=== PATIENT | female | born 1990 | race Caucasian/White ===

== ENCOUNTER → 2018-04-05 | Outpatient (REF) | payer BC | LOC: M LAB REF 13:44 | DX: Z12.4 Encounter for screening for malignant neoplasm of cervix (principal) | CPT/HCPCS: G0123 ==

== ENCOUNTER → 2018-05-11 | Outpatient (CLI) | payer BC ==
[~2018-05-11] MED LIST: ACET50TA PO; ANUS2.5C2 PR; DOCU10ELUD PO; IBUP600T26 PO; IBUP60TA PO; IBUP80TA PO; MAPA500T2 PO; MOM30SS PO; PRENTAB9 PO; TUMS500C PO
[2018-05-11 14:09] LABS: BASO % 0.6 % (0.0-1.0); EOS # 0.1 10^3/uL (0.0-0.50); EOS % 0.8 % (0.0-3.0); HEMATOCRIT 39.9 % (36.0-47.0); HEMOGLOBIN 13.4 g/dl (12.0-15.5); LYMPH # 2.1 10^3/uL (1.5-6.5); LYMPH % 31.3 % (24.0-44.0); MEAN CORPUSCULAR HEMOGLOBIN 31.8 pg (27.0-33.0); MEAN CORPUSCULAR HGB CONC 33.6 g/dl (32.0-36.5); MEAN CORPUSCULAR VOLUME 94.8 fl (80.0-96.0); MONO # 0.4 10^3/uL (0.0-0.8); MONO % 6.7 % (0.0-5.0); NEUTROPHILS % 60.3 % (36.0-66.0); PLATELET COUNT, AUTOMATED 215 10^3/uL (150-450); RED BLOOD COUNT 4.21 10^6/uL (4.00-5.40); WHITE BLOOD COUNT 6.6 10^3/uL (4.0-10.0)
[2018-05-11 15:12] LABS: CHLAMYDIA DNA AMPLIFICATION NEGATIVE (NEGATIVE); GC DNA AMPLIFICATION NEGATIVE (NEGATIVE)
[2018-05-12 10:30] LABS: HEPATITIS C VIRUS ABY INDEX 0.1 INDEX (<0.8); HIV 1&2 SCREEN CENTAUR NEGATIVE (NEGATIVE); RUBELLA IgG QUALITATIVE IMMUNE (IMMUNE)
== END ==
LOC: M SMT 09:33
PROVIDERS: ATTEND Advanced Practice Midwife
DX: Z36.89 Encounter for other specified antenatal screening (principal); Z3A.12 12 weeks gestation of pregnancy

== ENCOUNTER → 2018-06-08 | Outpatient (REF) | payer BC | LOC: M LAB REF 17:32 | PROVIDERS: ATTEND Advanced Practice Midwife | DX: Z34.82 Encounter for supervision of other normal pregnancy, second trimester (principal) ==

== ENCOUNTER → 2018-06-21 | Outpatient (CLI) | payer BC, MEDICAID ==
--- NOTE | 2018-06-22 08:22 | REP ---
Clinical: Anatomical evaluation. Comparison: None . Findings: Examination demonstrates a single live intrauterine in breech presentation. motion is identified by technologist. Placenta is noted posterior and grade grade 1 without evidence for placenta previa or abruption. Amniotic fluid volume is normal. Cervix measures 4.6 cm in length and appears closed. No evidence for nuchal cord. Gestational age by LMP 18 weeks 2 days with CHRIS 11/20/2018 . Gestational age by current measurements 18 weeks 6 days with CHRIS 11/16/2018 . FHR equals 150 beats per minute. BPD 4.2 cm 18 weeks 5 days HC 14.7 cm 17 weeks 6 days AC 13.8 cm 19 weeks 2 days FL 2.9 cm 18 weeks 6 days HL 2.9 cm 19 weeks 3 days HC/AC ratio 1.07 Estimated weight 266 grams ( 72nd percentile). Anatomical assessment demonstrates normal structures including cranium, cavum, lungs, diaphragm, stomach, cord insertion/three-vessel cord, kidneys/bladder, spine, and lower extremities. 6 cm left choroid plexus cyst noted. Limited evaluation of the posterior fossa, facial features, heart/ventricular outflow tracts, and extremities. Impression: 1. Single live intrauterine in breech presentation demonstrating appropriate interval growth. 2. Abnormal findings and anatomical limitations as noted above warrant reevaluation and follow-up. Electronically Signed by Montez Pepper MD 06/22/2018 08:13 A
== END ==
LOC: M RAD 09:36
PROVIDERS: ATTEND Advanced Practice Midwife
DX: Z36.89 Encounter for other specified antenatal screening (principal); Z3A.18 18 weeks gestation of pregnancy

== ENCOUNTER → 2018-07-06 | Outpatient (REF) | payer BC, MEDICAID | LOC: M LAB REF 13:20 | PROVIDERS: ATTEND Advanced Practice Midwife | DX: Z34.82 Encounter for supervision of other normal pregnancy, second trimester (principal); Z3A.00 Weeks of gestation of pregnancy not specified ==

== ENCOUNTER → 2018-07-19 | Outpatient (CLI) | payer BC ==
--- NOTE | 2018-07-20 05:39 | REP ---
Clinical: Anatomical evaluation. Comparison: 06/21/2018 . Findings: Examination demonstrates a single live intrauterine in footling breech presentation. motion is identified by technologist. Placenta is noted posterior and grade grade 1 without evidence for placenta previa or abruption. Amniotic fluid volume is normal. Cervix measures 4.6 cm in length and appears closed. No evidence for nuchal cord. Gestational age by LMP 22 weeks 2 days with CHRIS 11/20/2018 . Gestational age by current measurements 21 weeks 2 day with CHRIS 11/27/2018 . FHR equals 150 beats per minute. Estimated weight 452 grams ( 30th percentile). Anatomical assessment demonstrates normal structures including cranium, choroid plexus, cavum, cerebellum/posterior fossa, facial features, lungs, four-chamber heart, diaphragm, stomach, cord insertion/three-vessel cord, kidneys/bladder, spine, and extremities. Impression: 1. Single live intrauterine in breech presentation demonstrating appropriate interval growth. 2. Previously noted choroid plexus cysts have resolved. 3. Limited evaluation of the cardiac ventricular outflow tracts. Remainder of the anatomical assessment is complete and normal. Electronically Signed by Montez Pepper MD 07/20/2018 05:30 A
== END ==
LOC: M SMT 08:42
PROVIDERS: ATTEND Advanced Practice Midwife
DX: O32.1XX1 Maternal care for breech presentation, fetus 1 (principal); Z3A.21 21 weeks gestation of pregnancy

== ENCOUNTER → 2018-08-05 | Outpatient (REF) | payer BC, MEDICAID ==
[~2018-08-05] MED LIST changes: -ACET50TA PO; -DOCU10ELUD PO; +DOCU5LIQ PO; +IBUP600T42 PO; -IBUP60TA PO; +MAPA500T17 PO
== END ==
LOC: M LAB REF 13:31
PROVIDERS: ATTEND Advanced Practice Midwife
DX: Z34.82 Encounter for supervision of other normal pregnancy, second trimester (principal); Z3A.00 Weeks of gestation of pregnancy not specified

== ENCOUNTER → 2018-09-02 | Outpatient (CLI) | payer BC, MEDICAID ==
[2018-09-02 13:48] LABS: HEMATOCRIT 37.2 % (36.0-47.0); HEMOGLOBIN 11.9 g/dl (12.0-15.5); PLATELET COUNT, AUTOMATED 160 10^3/uL (150-450); RED BLOOD COUNT 3.72 10^6/uL (4.00-5.40); WHITE BLOOD COUNT 8.5 10^3/uL (4.0-10.0)
== END ==
LOC: M SMT 08:05
PROVIDERS: ATTEND Advanced Practice Midwife
DX: Z34.82 Encounter for supervision of other normal pregnancy, second trimester (principal); Z3A.00 Weeks of gestation of pregnancy not specified

== ENCOUNTER → 2018-10-27 | Outpatient (CLI) | payer BC, MEDICAID | LOC: M SMT 08:25 | PROVIDERS: ATTEND Advanced Practice Midwife | DX: Z34.83 Encounter for supervision of other normal pregnancy, third trimester (principal); Z3A.00 Weeks of gestation of pregnancy not specified ==

== ENCOUNTER 2018-11-13 14:10 | Outpatient (CLI) | payer BC, MEDICAID ==
[~2018-11-13] VITALS: Ht 160 cm; Wt 104.3 kg
[2018-11-13 14:26] VITALS: BP 133/70
[2018-11-13 15:14] VITALS: BP 126/73
== END 2018-11-13 15:26 | disposition home or self-care (01) ==
LOC: M LDO 14:10
PROVIDERS: ATTEND Obstetrics & Gynecology
DX: O36.8130 Decreased fetal movements, third trimester, not applicable or unspecified (principal); Z3A.37 37 weeks gestation of pregnancy
CPT/HCPCS: 59025; G0378; G0463

== ENCOUNTER 2018-11-17 08:45 | Inpatient (IN) | payer BC, MEDICAID ==
[~2018-11-17] VITALS: Ht 160 cm; Wt 104.2 kg
[2018-11-17] VITALS (22 sets, daily range): BP systolic 99–133; BP diastolic 51–69
[2018-11-17] MEDS ORDERED: TUMS500C PO (09:14)
[2018-11-17 09:58] LABS: HEMATOCRIT 34.6 % (36.0-47.0); HEMOGLOBIN 11.3 g/dl (12.0-15.5); MEAN CORPUSCULAR HEMOGLOBIN 31.4 pg (27.0-33.0); MEAN CORPUSCULAR HGB CONC 32.7 g/dl (32.0-36.5); MEAN CORPUSCULAR VOLUME 96.1 fl (80.0-96.0); PLATELET COUNT, AUTOMATED 136 10^3/uL (150-450)
[2018-11-17] MEDS ORDERED: miSOPROStol 50 MCG 1/2 TAB (S0191) PO ONE (10:00)
--- NOTE | 2018-11-17 10:06 | HPE ---
DATE OF ADMISSION: 11/17/2018 Radha is a 28-year-old 3, para 2-0-0-2 at 39-4/7 weeks gestation with and estimated date of confinement (EDC) of 11/20/2018 based on first trimester ultrasound. She presents to labor and delivery today for induction of labor for term . care was initiated at [facility] in the first trimester. course has been uncomplicated. OBSTETRICAL HISTORY: June 2012: 40 weeks 6/7 days, 9 pounds 8 ounces male, vaginal delivery uncomplicated. March 2014: 39-1/7 weeks gestation, 8 pounds 6 ounces male, spontaneous vaginal delivery, uncomplicated. OBSTETRIC LABS: A+, antibody screen negative, rubella immune, VDRL nonreactive. Urine culture no growth. Hep B surface antigen negative. HIV negative. Hep C antibody nonreactive. Gonorrhea and chlamydia negative and rubella immune. She did decline genetic serum screening labs. Gestational diabetic screening normal at 74 and her GBS is negative. PAST MEDICAL HISTORY: Childhood varicella. SURGERIES: None. FAMILY HISTORY: Thyroid dysfunction, asthma. SOCIAL HISTORY: The patient is single, however the father of the baby is at bedside and supportive. She is a nonsmoker. Denies history of alcohol use. Denies history of any sexually transmitted infections and denies history of abuse physical, sexual and emotional. ALLERGIES: No known drug allergies. CURRENT MEDICATIONS: vitamins OBJECTIVE: Temperature 96, pulse 106, respirations 28, blood pressure is 132/64. She is alert and oriented times three, smiling and talkative. heart rate is 135 with moderate variability, positive accelerations, no decelerations. No pattern of regular contractions. Abdomen: Gravid, cephalic presentation, 8-1/2 pound estimated weight. Sterile vaginal exam 3-4 cm, 50% effaced, -2 station mid position. Normal bloody show. ASSESSMENT: Intrauterine at 39-4/7 weeks. heart rate category 1. PLAN: Admit the patient to labor and delivery. Routine labs. Out of bed ad jesús. Clear liquid diet. One dose of misoprostol 50 mcg by mouth for cervical ripening. Likely will start IV Pitocin. The patient does desire an epidural when she is uncomfortable. The plan is for epidural and following epidural, will be assisted rupture of membranes and expectations of a spontaneous vaginal delivery. I did review risks, benefits and alternatives to the patient. All of patient and her partner's questions have been answered and they do desire to proceed with induction. The patient has been verbally consented for emergency surgery and blood products if necessary.
[2018-11-17] MEDS: LR 1,000 ML IV SCH ×2 (14:44→17:16)
[2018-11-17] MEDS ORDERED: OXYTOCIN DRIP 30 UNITS in APPROPRIATE DILUENT 1 EA IV SCH ×2 (14:45→20:31)
[2018-11-17] MEDS ORDERED: LACTATED RINGER'S 1000 ML IV ONE (16:45)
[2018-11-17] MEDS ORDERED: FENTANYL 2MCG/ML ROPIVACAINE 0.2% IN 0.9% NACL 100ML IVBAG As Ordered ONE (16:59)
[2018-11-17] MEDS ORDERED: FENTANYL/ROPIVACAINE/NACL BAG 100 ML EPIDURAL SCH (18:30)
[2018-11-17] MEDS ORDERED: ONDANSETRON 4MG/2ML VIAL (J2405) IV PRN (18:30)
[2018-11-17] MEDS ORDERED: EPIDURAL COMMENT XX SCH (18:30)
[2018-11-17] MEDS ORDERED: ePHEDrine SULFATE 25 MG/5 ML(5MG/ML) SYRINGE IV PRN (18:30)
[2018-11-17] MEDS ORDERED: NALOXONE INJ 0.4 MG/1 ML VIAL (J2310) IV PRN (18:30)
[2018-11-17] MEDS ORDERED: EPIDURAL/PCA KEYS XX PRN (18:30)
[2018-11-17] MEDS ORDERED: diphenhydrAMINE INJ 50MG/ML VIAL (J1200) IV PRN (18:30)
[2018-11-17] MEDS ORDERED: REFRIGERATOR IV KEYS XX PRN (18:30)
[2018-11-17] MEDS ORDERED: DOCUSATE SODIUM 100 MG CAP PO PRN (20:45)
[2018-11-17] MEDS ORDERED: DIBUCAINE 1% OINTMENT 30GM TOP PRN (20:45)
[2018-11-17] MEDS ORDERED: IBUPROFEN 800 MG TAB PO PRN (20:45)
[2018-11-17] MEDS ORDERED: METHYLERGONOVINE MALEATE 0.2 MG TAB PO PRN (20:45)
[2018-11-17] MEDS ORDERED: RHOGAM 300 MCG (1500 IU) INJ (J2790) IM SCH (20:45)
[2018-11-17] MEDS ORDERED: ACETAMINOPHEN 500 MG TAB PO PRN (20:45)
[2018-11-17] MEDS ORDERED: MEASLES,MUMPS,RUBELLA VACCINE INJ (MMR-II) (90707) SC SCH (20:45)
[2018-11-17] MEDS ORDERED: IBUPROFEN 600 MG TAB PO PRN (20:45)
--- NOTE | 2018-11-17 21:12 | DN ---
DATE: 11/17/2018 Radha is a 28-year-old 3, para 3-0-0-3 now who was admitted to labor and delivery for induction of labor at term . Misoprostol IV Pitocin was utilized and labor did ensue. She used an epidural for her labor coping. She progressed to full dilation at 1999. She pushed to a normal spontaneous vaginal delivery of a live male in occiput anterior (OA) position with restitution to right occiput transverse (ROT) position at 2004. There was no nuchal cord. The shoulders delivered spontaneously and the corpus immediately followed. The male was placed on maternal abdomen, crying and active. His mouth and nares were bulb suctioned. The cord was clamped times two once pulsations ceased and cut by the father of the baby under my direction. A spontaneous expulsion of an intact placenta with three-vessel cord by Moct[place]uma mechanism was at 2009. Uterine hemostasis achieved with IV Pitocin rapid infusion and uterine fundal massage. Estimated blood loss 300 mL. Perineum and vagina inspected, noted to be intact. male weighed 8 pounds 8 ounces, 3850 grams, scores 9 and 9. Mom is going to breastfeed her son and the family have named him Darwin. At the close of delivery, lap counts and instrument counts were correct and verified.
[2018-11-18] MEDS: ACETAMINOPHEN TAB 650MG DOSE (2X325MG) PO PRN ×3 (01:08→18:28)
[2018-11-18 05:30] VITALS: BP 115/58
[2018-11-18] MEDS: PRENATAL VITAMINS CHEWABLE TABLET PO SCH (08:15)
[2018-11-18 18:00] VITALS: BP 114/62
[2018-11-19 06:00] VITALS: BP 107/53
[2018-11-19] MEDS: PRENATAL VITAMINS CHEWABLE TABLET PO SCH (08:34)
== END 2018-11-19 11:30 | disposition home or self-care (01) | DRG 560 ==
LOC: M LDI 08:45 → M OBS 22:13
PROVIDERS: ADMIT Advanced Practice Midwife; ATTEND Advanced Practice Midwife
PROC: 10E0XZZ Delivery of Products of Conception, External Approach (ICD-10-PCS; principal; 2018-11-17)
PROC: 3E0P7GC Introduction of Other Therapeutic Substance into Female Reproductive, Via Natural or Artificial Opening (ICD-10-PCS; 2018-11-17)
PROC: 10907ZC Drainage of Amniotic Fluid, Therapeutic from Products of Conception, Via Natural or Artificial Opening (ICD-10-PCS; 2018-11-17)
DX: O80 Encounter for full-term uncomplicated delivery (principal); Z3A.39 39 weeks gestation of pregnancy; Z37.0 Single live birth

== ENCOUNTER → 2020-06-13 | Outpatient (REF) | payer BC | LOC: M SFHCWAGY 15:47 | PROVIDERS: ATTEND Nurse Practitioner Family | DX: Z12.4 Encounter for screening for malignant neoplasm of cervix (principal) ==

== ENCOUNTER → 2020-08-28 | Outpatient (REF) | payer BC ==
[2020-08-28 12:43] LABS: BASO % 0.7 % (0.0-1.0); EOS # 0.1 10^3/uL (0.0-0.5); EOS % 1.6 % (0.0-3.0); HEMATOCRIT 42.5 % (36.0-47.0); HEMOGLOBIN 13.9 g/dl (12.0-15.5); LYMPH # 1.9 10^3/uL (1.5-5.0); LYMPH % 42.4 % (24.0-44.0); MEAN CORPUSCULAR HEMOGLOBIN 31.8 pg (27.0-33.0); MEAN CORPUSCULAR HGB CONC 32.7 g/dl (32.0-36.5); MEAN CORPUSCULAR VOLUME 97.3 fl (80.0-96.0); MONO # 0.4 10^3/uL (0.0-0.8); MONO % 9.8 % (2.0-8.0); NEUTROPHILS % 45.3 % (36.0-66.0); PLATELET COUNT, AUTOMATED 167 10^3/uL (150-450); RED BLOOD COUNT 4.37 10^6/uL (4.00-5.40); WHITE BLOOD COUNT 4.5 10^3/uL (4.0-10.0)
[2020-08-28 13:03] LABS: ALBUMIN 3.9 GM/DL (3.2-5.2); ALT/SGPT 17 U/L (12-78); BILIRUBIN,TOTAL 0.7 MG/DL (0.2-1.0); BLOOD UREA NITROGEN 10 MG/DL (7-18); CARBON DIOXIDE LEVEL 26 MEQ/L (21-32); CHLORIDE LEVEL 107 MEQ/L (98-107); CHOLESTEROL LEVEL 179 MG/DL (<200); CHOLESTEROL RISK RATIO 3.033 (<5); CREATININE FOR GFR 0.78 MG/DL (0.55-1.30); GLOMERULAR FILTRATION RATE > 60.0 (>60); GLUCOSE, FASTING 71 MG/DL (70-100); HDL CHOLESTEROL 59 MG/DL (>40); LDL CHOLESTEROL 108 MG/DL (<100); NON-HDL-C 120 MG/DL; POTASSIUM SERUM 4.7 MEQ/L (3.5-5.1); SODIUM LEVEL 139 MEQ/L (136-145); TRIGLYCERIDES LEVEL 62 MG/DL (<150)
== END ==
LOC: M SFHCADAM 07:55
PROVIDERS: ATTEND Physician Assistant Medical
DX: Z00.00 Encounter for general adult medical examination without abnormal findings (principal); Z13.0 Encounter for screening for diseases of the blood and blood-forming organs and certain disorders involving the immune mechanism; Z13.220 Encounter for screening for lipoid disorders

== ENCOUNTER → 2022-03-06 | Outpatient (REF) | payer OTHER | LOC: M SFHCADAM 08:37 | PROVIDERS: ATTEND Physician Assistant Medical | DX: F39 Unspecified mood [affective] disorder (principal) ==

== ENCOUNTER → 2023-10-14 | Outpatient (REF) | payer OTHER ==
[2023-10-14 13:44] LABS: THYROID STIMULATING HORMONE 1.132 uIU/ML (0.55-4.78)
[2023-10-14 13:46] LABS: FREE T4 0.98 NG/DL (0.89-1.76)
== END ==
LOC: M SFHCADAM 08:35
PROVIDERS: ATTEND Physician Assistant Medical
DX: Z00.00 Encounter for general adult medical examination without abnormal findings (principal); Z83.49 Family history of other endocrine, nutritional and metabolic diseases

== ENCOUNTER → 2024-09-14 | Outpatient (CLI) | payer OTHER | LOC: M RAD 13:46 | PROVIDERS: ATTEND Plastic Surgery Surgery of the Hand | DX: R22.0 Localized swelling, mass and lump, head (principal) ==

== ENCOUNTER 2024-11-08 07:09 | Day surgery (SDC) | payer OTHER ==
[~2024-11-08] VITALS: Ht 160 cm; Wt 88.0 kg
[2024-11-08] MEDS ORDERED: LR 1,000 ML IV SCH (07:25)
[2024-11-08] MEDS ORDERED: LIDOCAINE 2% 100 MG/5 ML SDV (FOR ANES.) As Ordered ONE (07:51)
[2024-11-08] MEDS ORDERED: dexAMETHasone 4 MG/ML 1 ML VIAL As Ordered ONE (07:51)
[2024-11-08] MEDS ORDERED: ONDANSETRON 4MG 2ML VIAL As Ordered ONE (07:51)
[2024-11-08] MEDS ORDERED: MIDAZOLAM INJ 2 MG/2 ML VIAL As Ordered ONE (07:54)
[2024-11-08] MEDS: GENTAMICIN SULF 80 MG/2 ML VIAL As Ordered ONE (08:38)
[2024-11-08] MEDS: POVIDONE-IODINE 5% OPHTH PREP SOL 30ML As Ordered ONE (09:06)
[2024-11-08] MEDS: ceFAZolin SOD 2 GM IV ONCE IV ONE (09:06)
[2024-11-08] MEDS ORDERED: ACETAMINOPHEN 1000MG/100ML IV BAG As Ordered ONE (09:10)
[2024-11-08] MEDS: LIDOCAINE 2% W/EPINEPHrine 20 ML VIAL **PRES FREE As Ordered ONE (09:14)
[2024-11-08] MEDS ORDERED: MORPHINE 2 MG/ML 1 ML VIAL IV PRN (09:40)
[2024-11-08] MEDS ORDERED: ONDANSETRON 4MG 2ML VIAL IV PRN (09:40)
[2024-11-08 10:29] VITALS: BP 120/70; TEMP 96.4; O2SAT 100
== END 2024-11-08 10:58 | disposition home or self-care (01) ==
LOC: M SDC 07:09
PROVIDERS: ATTEND Plastic Surgery Surgery of the Hand
DX: D17.9 Benign lipomatous neoplasm, unspecified (principal)
CPT/HCPCS: 21013; 81025; 88305; J0131; J0690; J1100; J2250; J2405; J3010

== ENCOUNTER → 2024-11-15 | Outpatient (REF) | payer OTHER ==
[2024-11-15 19:19] LABS: MAGNESIUM LEVEL 2.0 MG/DL (1.8-2.4)
[2024-11-15 19:21] LABS: VITAMIN B12 LEVEL 837.0 PG/ML (211-911)
== END ==
LOC: M SFHCADAM 15:18
PROVIDERS: ATTEND Physician Assistant Medical
DX: E66.01 Morbid (severe) obesity due to excess calories (principal)

== ENCOUNTER → 2025-02-03 | Outpatient (CLI) | payer OTHER | LOC: M PLAIMG 12:34 | PROVIDERS: ATTEND Physician Assistant Medical | DX: Z13.6 Encounter for screening for cardiovascular disorders (principal); Z82.79 Family history of other congenital malformations, deformations and chromosomal abnormalities ==